=== PATIENT | male | born 1945 | race Caucasian/White ===

== ENCOUNTER 2017-06-30 08:59 | Day surgery (SDC) | payer MEDICARE, BC ==
[~2017-06-30 08:59] MED LIST: RINGER'S SOLUTION,LACTATED 1,000 ML IV PRN; ceFAZolin SODIUM 1 GM VIAL IV PRN
[2017-06-30] MEDS ORDERED: RINGER'S SOLUTION,LACTATED 1,000 ML IV ONE ×2 (09:34→10:20)
[2017-06-30] MEDS ORDERED: BUPIVACAINE HCL 50 ML VIAL IJ ONE ×2 (10:05)
--- NOTE | 2017-06-30 10:59 | POSTOP NO ---
Date of Surgery: 06/30/17 Patient Tolerated the Procedure: Well Post Operative Diagnosis/Procedures: Industrial Millwright: Tarik Matt PA-C Post-operative Diagnosis: Left carpal and cubital tunnel syndrome Finding: Above Procedure: Left endoscopic carpal tunnel release and open cubital tunnel release Estimated Blood Loss: Minimal Specimens: None
--- NOTE | 2017-06-30 11:00 | OR ---
Operative Report - Dictated Report Narrative: Date: 06/30/2017 Physician: Abel Singer M.D. Intelligence Officer Basic: Tarik Matt PA-C Preoperative diagnosis: Left carpal and cubital tunnel syndrome Postoperative diagnosis: Left carpal and cubital tunnel syndrome Procedure: Left endoscopic carpal tunnel release and ulnar nerve decompression at the cubital tunnel Anesthesia: General Plus local Complications: None Estimated blood loss: Minimal Tourniquet time: 26 Minutes at 250 mmHg Specimens: None Retained implants: None Drains: None Indications: Mr. Greene Is a 71-year-old gentleman who has been followed in my clinic with complaints of cubital and carpal tunnel syndrome. Physical exam as well as diagnostic testing showed compression of the ulnar and median nerve compatible with cubital and carpal tunnel syndrome. Conservative measures had failed including, but not limited to, activity modification, medications, and/or splinting. The risks, benefits, and alternatives were discussed in clinic. The risks being bleeding, infection, nerve, tendon, blood vessel injury, persistent pain, wound competitions, weakness, palm pain, need for additional procedures, and persistent symptoms. Consent was obtained in the clinic. Procedure: After marking the correct extremity in the preoperative holding area, a timeout was performed in the operating room. IV antibiotics consisting of Ancef were administered prior to the procedure. A well-padded tourniquet was applied to the operative upper arm. The arm was exsanguinated and the tourniquet was inflated to 250 mmHg. 0.5% Marcaine without epinephrine was infused into the projected incision site over the medial elbow and the portal sites at the wrist. Using loupe magnification, a transverse incision was made in the proximal wrist flexion crease just ulnar to the ulnar to the palmaris longus tendon or in line with approximately the ring finger. Blunt dissection and hemostasis with bipolar cautery was utilized down to the forearm fascia. The forearm fascia was split longitudinally just ulnar to the palmaris longus exposing the entry into the carpal tunnel. A [place] was placed under the transverse carpal ligament elevating the soft tissues under the dorsal aspect of the transverse carpal ligament. This was confirmed to be under the transverse carpal ligament based on the corrugated nature of the tissue. Once we had removed soft tissues from the transverse carpal ligament, a blunt trocar and cannula was introduced under the transverse carpal ligament exiting the palm through a ladonna incision. The hand was then placed in an extension holding device and the camera was introduced into the cannula. A probe was utilized in order to ensure that all soft tissues were elevated off the dorsal aspect of the transverse carpal ligament and ensuring that all tissues were running transversely. No vascular or neurologic tissues were visualized. The push, followed by probe, followed by hook blades was utilized to transect the distal one half of the transverse carpal ligament. This allowed for ingress of fat. The camera was then placed distally looking proximally, and the proximal one half of the transverse carpal ligament was transected using the hook blade. This again allowed for ingress of fat. The probe blade was utilized in order to release any additional remaining fibers. Once it was felt that the transverse carpal ligament was completely transected, the blunt trocar was reintroduced into the trocar and removed in whole. A [place] was utilized in order to visualize the carpal tunnel ensuring that the transverse carpal ligament was completely released using a [place]. The distal forearm fascia was released ensuring that the median nerve was completely decompressed utilizing tenotomy scissors. A light compressive dressing was then placed and attention was turned to the elbow. Next, a longitudinal incision centered over the cubital tunnel was made approximately 4 centimeters in length. Blunt dissection was carried down to the subcutaneous tissues using bipolar cautery for hemostasis. Care was taken to protect the identified underlying cutaneous nerves. The ulnar nerve was identified as it passed through the medial intermuscular septum along the distal triceps. A release of the canal in this area as the ulnar nerve passed anterior to posterior was performed in order to decompress the nerve at this site. The nerve was dissected releasing the overlying soft tissues while maintaining the vascularity of the nerve down to the area of the medial epicondyles and Quiroz's ligament. The nerve was completely decompressed as it passed posterior to the medial condyle and was followed into the flexor carpi ulnaris. The deep fascia of the flexor carpi ulnaris muscle was released in order to decompress the nerve at this site. The first branch of the ulnar nerve was protected as well as any identified recurrent branches. The elbow was placed through range of motion and it was noted that the nerve was not unstable nor did it appear to be under tension as it passed behind the medial epicondyle. For this reason it was not felt that a transposition was not necessary. Once it was felt that we had completely released the compressive structures on the ulnar nerve, the wound was thoroughly irrigated and the tourniquet was deflated. Fluid passed freely through the carpal tunnel wounds. Hemostasis was obtained at the elbow and wrist using pressure and bipolar cautery. Once adequate hemostasis was in place, additional local anesthetic was placed in the skin edges, and the subcutaneous tissue at the elbow was closed with interrupted Vicryl. The skin and portal sites were closed with 4-0 nylon and sterile dressings consisting of Xeroform, 4 x 4, soft roll, a plaster short arm dorsal wrist splint, and a forearm Saad wrap was applied. All sponge, needle, blade, and instrument counts were correct prior to closing the wounds. The patient was awoken and transferred to the postanesthesia care unit in stable condition.
[2017-07-01 09:16] VITALS: BP 129/81
== END 2017-06-30 09:00 | disposition home or self-care (01) ==
LOC: AMB 08:59
PROVIDERS: ATTEND Orthopaedic Surgery
PROC: 01N54ZZ Release Median Nerve, Percutaneous Endoscopic Approach (ICD-10-PCS; principal; 2017-06-30)
PROC: 01N40ZZ Release Ulnar Nerve, Open Approach (ICD-10-PCS; 2017-06-30)
DX: G56.02 Carpal tunnel syndrome, left upper limb (principal); G56.22 Lesion of ulnar nerve, left upper limb; Z79.82 Long term (current) use of aspirin

== ENCOUNTER 2017-07-16 10:43 | Day surgery (SDC) | payer MEDICARE, BC ==
[~2017-07-16 10:43] MED LIST changes: +ACETAMINOPHEN 500 MG TABLET PO PRN; +HYDROmorphone HCL 2 MG/ML VIAL IV PRN; +MAG HYDROX/ALUMINUM HYD/SIMETH 30 ML UDC PO PRN; +MAGNESIUM HYDROXIDE 30 ML UDC PO PRN; +ONDANSETRON HCL/PF 2 MG/ML VIAL IV PRN; +PROMETHAZINE HCL 25 MG in DEXTROSE 5 % IN WATER 50 ML IV PRN; +ZOLPIDEM TARTRATE 5 MG TABLET PO PRN; +diphenhydrAMINE HCL 50 MG/ML VIAL IV PRN; +oxyCODONE HCL/ACETAMINOPHEN 1 TAB TABLET PO PRN
[2017-07-16] MEDS ORDERED: RINGER'S SOLUTION,LACTATED 1,000 ML IV ONE ×3 (11:15→13:05)
[2017-07-16] MEDS ORDERED: BUPIVACAINE HCL 50 ML VIAL IJ ONE (12:31)
--- NOTE | 2017-07-16 13:14 | POSTOP NO ---
Date of Surgery: 07/16/17 Patient Tolerated the Procedure: Well Post Operative Diagnosis/Procedures: Lead Burner Helper: None Post-operative Diagnosis: Right carpal and cubital tunnel syndrome Finding: Above Procedure: Right endoscopic carpal tunnel release and right cubital tunnel release Estimated Blood Loss: Minimal Specimens: None
--- NOTE | 2017-07-16 13:15 | OR ---
Operative Report - Dictated Report Narrative: Date: 07/16/2017 Physician: Abel Singer M.D. Leaflet Distributor: None Preoperative diagnosis: Right carpal and cubital tunnel syndrome Postoperative diagnosis: Right carpal and cubital tunnel syndrome Procedure: Right endoscopic carpal tunnel release and ulnar nerve decompression at the cubital tunnel Anesthesia: General Plus local Complications: None Estimated blood loss: Minimal Tourniquet time: 23 Minutes at 250 mmHg Specimens: None Retained implants: None Drains: None Indications: Mr. Greene Is a 71-year-old gentleman who has been followed in my clinic with complaints of cubital and carpal tunnel syndrome. Physical exam as well as diagnostic testing showed compression of the ulnar and median nerve compatible with cubital and carpal tunnel syndrome. Conservative measures had failed including, but not limited to, activity modification, medications, and/or splinting. The risks, benefits, and alternatives were discussed in clinic. The risks being bleeding, infection, nerve, tendon, blood vessel injury, persistent pain, wound competitions, weakness, palm pain, need for additional procedures, and persistent symptoms. Consent was obtained in the clinic. Procedure: After marking the correct extremity in the preoperative holding area, a timeout was performed in the operating room. IV antibiotics consisting of Ancef were administered prior to the procedure. A well-padded tourniquet was applied to the operative upper arm. The arm was exsanguinated and the tourniquet was inflated to 250 mmHg. 0.5% Marcaine without epinephrine was infused into the projected incision site over the medial elbow and the portal sites at the wrist. Using loupe magnification, a transverse incision was made in the proximal wrist flexion crease just ulnar to the ulnar to the palmaris longus tendon or in line with approximately the ring finger. Blunt dissection and hemostasis with bipolar cautery was utilized down to the forearm fascia. The forearm fascia was split longitudinally just ulnar to the palmaris longus exposing the entry into the carpal tunnel. A [place] was placed under the transverse carpal ligament elevating the soft tissues under the dorsal aspect of the transverse carpal ligament. This was confirmed to be under the transverse carpal ligament based on the corrugated nature of the tissue. Once we had removed soft tissues from the transverse carpal ligament, a blunt trocar and cannula was introduced under the transverse carpal ligament exiting the palm through a ladonna incision. The hand was then placed in an extension holding device and the camera was introduced into the cannula. A probe was utilized in order to ensure that all soft tissues were elevated off the dorsal aspect of the transverse carpal ligament and ensuring that all tissues were running transversely. No vascular or neurologic tissues were visualized. The push, followed by probe, followed by hook blades was utilized to transect the distal one half of the transverse carpal ligament. This allowed for ingress of fat. The camera was then placed distally looking proximally, and the proximal one half of the transverse carpal ligament was transected using the hook blade. This again allowed for ingress of fat. The probe blade was utilized in order to release any additional remaining fibers. Once it was felt that the transverse carpal ligament was completely transected, the blunt trocar was reintroduced into the trocar and removed in whole. A [place]agn[place] was utilized in order to visualize the carpal tunnel ensuring that the transverse carpal ligament was completely released using a [place]. The distal forearm fascia was released ensuring that the median nerve was completely decompressed utilizing tenotomy scissors. A light compressive dressing was then placed and attention was turned to the elbow. Next, a longitudinal incision centered over the cubital tunnel was made approximately 5 centimeters in length. Blunt dissection was carried down to the subcutaneous tissues using bipolar cautery for hemostasis. Care was taken to protect the identified underlying cutaneous nerves. The ulnar nerve was identified as it passed through the medial intermuscular septum along the distal triceps. A release of the canal in this area as the ulnar nerve passed anterior to posterior was performed in order to decompress the nerve at this site. The nerve was dissected releasing the overlying soft tissues while maintaining the vascularity of the nerve down to the area of the medial epicondyles and Quiroz's ligament. The nerve was completely decompressed as it passed posterior to the medial condyle and was followed into the flexor carpi ulnaris. The deep fascia of the flexor carpi ulnaris muscle was released in order to decompress the nerve at this site. The first branch of the ulnar nerve was protected as well as any identified recurrent branches. The elbow was placed through range of motion and it was noted that the nerve was not unstable nor did it appear to be under tension as it passed behind the medial epicondyle. For this reason it was not felt that a transposition was not necessary. Once it was felt that we had completely released the compressive structures on the ulnar nerve, the wound was thoroughly irrigated and the tourniquet was deflated. Fluid passed freely through the carpal tunnel wounds. Hemostasis was obtained at the elbow and wrist using pressure and bipolar cautery. Once adequate hemostasis was in place, additional local anesthetic was placed in the skin edges, and the subcutaneous tissue at the elbow was closed with interrupted Vicryl. The skin and portal sites were closed with 4-0 nylon and sterile dressings consisting of Xeroform, 4 x 4, soft roll, a plaster short arm dorsal wrist splint, and a forearm Saad wrap was applied. All sponge, needle, blade, and instrument counts were correct prior to closing the wounds. The patient was awoken and transferred to the postanesthesia care unit in stable condition.
[2017-07-16] MEDS ORDERED: IBUPROFEN 400 MG TABLET PO ONE (14:30)
[2017-07-16 14:57] VITALS: BP 131/69
[2017-07-16] MEDS ORDERED: SENNOSIDES/DOCUSATE SODIUM 1 TAB TABLET PO SCH (21:00)
== END 2017-07-16 10:44 | disposition home or self-care (01) ==
LOC: AMB 10:43
PROVIDERS: ATTEND Orthopaedic Surgery
PROC: 01N54ZZ Release Median Nerve, Percutaneous Endoscopic Approach (ICD-10-PCS; principal; 2017-07-16)
PROC: 01N40ZZ Release Ulnar Nerve, Open Approach (ICD-10-PCS; 2017-07-16)
DX: G56.01 Carpal tunnel syndrome, right upper limb (principal); G56.21 Lesion of ulnar nerve, right upper limb; I10 Essential (primary) hypertension; Z68.24 Body mass index [BMI] 24.0-24.9, adult